=== PATIENT | female | born 1995 | race Caucasian/White ===

== ENCOUNTER 2018-06-11 20:04 | Observation (INO) | payer OTHER ==
--- NOTE | 2018-06-11 20:21 | ED PDOC ---
"Arrival/HPI - General Time Seen by Provider: 06/11/18 20:17 Historian: Patient - History of Present Illness Narrative History of Present Illness (Text): 06/11/18 20:21 22 y/o female, no significant pmh, nkda, c/o acute on set of the RLQ abdominal pain started this evening. Aching and cramping pain, on and off, admits vaginal bleeding from the period which coincidentally started today, admits nausea but no vomiting, stated that she only takes tylenol for pain and it's not reliving the pain, no night sweat, no rash, no numbness or tingling, no palpitation, no other medical or psychological complaints. Past Medical History - Provider Review Nursing Documentation Reviewed: Yes Family/Social History - Physician Review Nursing Documentation Reviewed: Yes Family/Social History: Unknown Family HX Allergies/Home Meds Allergies/Adverse Reactions: Allergies No Known Allergies Allergy (Verified 06/11/18 20:22) Review of Systems - Review of Systems Constitutional: absent: Fatigue, Fevers Eyes: absent: Vision Changes ENT: absent: Hearing Changes Respiratory: absent: SOB, Cough Cardiovascular: absent: Chest Pain Gastrointestinal: Abdominal Pain, Nausea. absent: Vomiting Genitourinary Female: Vaginal Bleeding. absent: Dysuria, Frequency, Hematuria, Urine Output Changes, Vaginal Discharge Musculoskeletal: absent: Arthralgias, Back Pain Skin: absent: Rash, Pruritis Neurological: absent: Headache, Dizziness Psychiatric: absent: Anxiety, Depression, Suicidal Ideation Physical Exam Vital Signs Reviewed: Yes Vital Signs Temp Pulse Resp BP Pulse Ox 06/12/18 01:38 80 18 110/65 100 06/11/18 20:40 98.5 F 75 18 104/51 L 100 Temperature: Afebrile Pulse: Regular Respiratory Rate: Normal Appearance: Positive for: Well-Appearing, Non-Toxic Pain Distress: Moderate Mental Status: Positive for: Alert and Oriented X 3 - Systems Exam Head: Present: Atraumatic, Normocephalic Pupils: Present: PERRL Extroacular Muscles: Present: EOMI Conjunctiva: Present: Normal Mouth: Present: Moist Mucous Membranes Neck: Present: Normal Range of Motion, Trachea Midline. No: Meningeal Signs, MIDLINE TENDERNESS, Paraspinal Tenderness, Lymphadenopathy Respiratory/Chest: Present: Clear to Auscultation, Good Air Exchange. No: Respiratory Distress, Accessory Muscle Use Cardiovascular: Present: Regular Rate and Rhythm, Normal S1, S2. No: Murmurs Abdomen: Present: Tenderness (RLQ region). No: Distention, Peritoneal Signs, Rebound, Guarding Back: Present: Normal Inspection. No: CVA Tenderness, Midline Tenderness, Paraspinal Tenderness Upper Extremity: Present: Normal Inspection. No: Cyanosis, Edema Lower Extremity: Present: Normal Inspection. No: Edema Neurological: Present: GCS=15, CN II-XII Intact, Speech Normal Skin: Present: Warm, Dry, Normal Color. No: Rashes Psychiatric: Present: Alert, Oriented x 3, Normal Insight, Normal Concentration Medical Decision Making ED Course and Treatment: 06/11/18 20:23 -Urine hcg -Transvaginal sonogram -Toradol -Observe and reassess 06/11/18 23:50 -Urine hcg is negative -CT abdomen and pelvis show: Trace free pelvic fluid. appendicolith noted. -Transvaginal sonogram show Small free pelvic fluid, physiologic change or sequela of ovarian cyst leakage or rupture in the appropriate clinical setting. Physiologic follicles. No adnexal lesions or masses. No intrauterine . Normal blood flow to the ovaries. -Labs show no acute findings except wbc 15.1 (afebrile, likely pain and stress induced) -UA show no UTI -Paging surgical team for consult and evaluation. -All labs/radiology result discussed with the patient and family, agreed to be admitted for observation as the clinical picture of appendicitis is possible but slim which I can not 100% excluded the early appendicitis at this time as she would need repeat CBC to trend WBC and serial abdominal exam which would require observation over night at least. As per request to admit to Dr. Abdul as Dr. Echols doesn't come to this hospital. 06/12/18 01:24 -Pt. evaluated by the surgical services asst, Dr. Dominguez , came to evaluate the patient request to admit to the medicine and place DR. Rivera as consult, she will discussed the case with Dr. Rivera -I spoke to Dr. Abdul, discussed about the case/labs/radiology result, agreed to admit to her service for observation with routine consult with DR. Rivera. - Lab Interpretations Lab Results: 06/11/18 20:51 06/11/18 20:51 Lab Results 06/11/18 20:51: WBC 15.1 H, RBC 4.20, Hgb 12.1, Hct 35.8 L, MCV 85.2, MCH 28.8, MCHC 33.8, RDW 12.4, Plt Count 331, MPV 10.2, Gran % 76.7 H, Lymph % (Auto) 18.2 L, [place] % (Auto) 4.1, Eos % (Auto) 0.7 L, Baso % (Auto) 0.3, Gran # 11.58 H , Lymph # (Auto) 2.8, [place] # (Auto) 0.6, Eos # (Auto) 0.1, Baso # (Auto) 0.04 06/11/18 20:51: Sodium 143, Potassium 3.7, Chloride 105, Carbon Dioxide 24, Anion Gap 17, BUN 11, Creatinine 0.6 L, Est GFR ( Amer) > 60, Est GFR ( Non-Af Amer) > 60, Random Glucose 130 H, Calcium 9.5, Total Bilirubin 0.2, AST 33, ALT 21, Alkaline Phosphatase 73, Total Protein 8.3, Albumin 4.7, Globulin 3.6, Albumin/Globulin Ratio 1.3 06/11/18 20:51: Urine Color Yellow, Urine Appearance Clear, Urine pH 6.0, Ur Specific [place] 1.025, Urine Protein 30 H, Urine Glucose (UA) Negative, Urine Ketones Negative, Urine Blood Large H, Urine Nitrate Negative, Urine Bilirubin Negative, Urine Urobilinogen 0.2, Ur Leukocyte Esterase Negative, Urine RBC 20 - 25, Urine WBC 0 - 2, Ur Epithelial Cells 4 - 5, Urine Bacteria Many - RAD Interpretation Radiology Orders: 06/11/18 20:37 TRANSVAGINAL [US] Stat 06/11/18 20:39 ABD & PELVIS IV CONTRAST ONLY [CT] Stat Transvaginal sonogram: FINDINGS: Uterus/cervix: Uterus is 7.6 cm. Endometrial thickness is 5.3 mm. Cervix is closed a 2.6 cm. No myometrial mass. Right ovary: Right ovary measures 2.5 cm. Normal blood flow. Left ovary: Left ovary measures 2.8 cm. Normal blood flow. Free fluid: Small free fluid is present in the pelvis. IMPRESSION: Small free pelvic fluid, physiologic change or sequela of ovarian cyst leakage or rupture in the appropriate clinical setting. Physiologic follicles. No adnexal lesions or masses. No intrauterine . Normal blood flow to the ovaries. Thank you for allowing us to participate in the care of your patient. Dictated and Authenticated by: Luiz Campoverde MD 06/11/2018 10:23 PM Eastern Time ([place] & [place]) CT abdomen and pelvis: Lung bases: Unremarkable. No mass. No consolidation. ABDOMEN: Liver: Unremarkable. No mass. Gallbladder and bile ducts: Unremarkable. No calcified stones. No ductal dilation. Pancreas: Unremarkable. No mass. No ductal dilation. Spleen: Unremarkable. No splenomegaly. Adrenals: Unremarkable. No mass. Kidneys and ureters: Unremarkable. No solid mass. No hydronephrosis. Stomach and bowel: Unremarkable. No obstruction. No mucosal thickening. ZEFERINO CARDENASJANET | Preliminary Radiology Report WEATHER STRIP MECHANIC (QA) DISCREPANCY? If there is a discrepancy between the preliminary and final interpretation, please notify [facility] via [email or web address]. If you do not have access to our QA portal, call our QA team at [phone] CONFIDENTIALITY STATEMENT This report is intended only for the use of the referring physician, and only in accordance with law, If you received this in error, call [phone] Page 2 of 2 PELVIS: Appendix: What appear to be appendicoliths are present in a nondistended appendix Bladder: Unremarkable. No mass. Reproductive: Unremarkable as visualized. ABDOMEN and PELVIS: Intraperitoneal space: Trace free fluid is present which is nonspecific but may reflect physiologic fluid or rupture of an ovarian cyst or follicle. No free air. Bones/joints: No acute fracture. No dislocation. Soft tissues: Unremarkable. Vasculature: Unremarkable. No abdominal aortic aneurysm. Lymph nodes: [place] nonspecific retroperitoneal lymphadenopathy is noted. IMPRESSION: Trace free pelvic fluid. Thank you for allowing us to participate in the care of your patient. Dictated and Authenticated by: Benji Burton MD 06/11/2018 11:45 PM Eastern Time ([place] & [place]) Center Medical Director: Radiologist - Medication Orders Current Medication Orders: Acetaminophen (Tylenol 325mg Tab) 650 mg PO Q6H PRN PRN Reason: Pain, Mild (1-3) Ondansetron HCl (Zofran Inj) 4 mg IVP Q4H PRN PRN Reason: Nausea/Vomiting Discontinued Medications Sodium Chloride (Sodium Chloride 0.9%) 1,000 mls @ 999 mls/hr IV .Q1H1M STA Stop: 06/11/18 21:37 Last Admin: 06/11/18 20:50 Dose: 999 mls/hr eMAR Start Stop Document 06/11/18 20:50 AD (Rec: 06/11/18 20:52 AD [email or web address]) Intravenous Solution Start Date 06/11/18 Start Time 20:52 Sodium Chloride (Sodium Chloride 0.9%) 1,000 mls @ 250 mls/hr IV .Q4H JAYA Last Admin: 06/11/18 22:55 Dose: 250 mls/hr eMAR Start Stop Document 06/11/18 22:55 AD (Rec: 06/11/18 22:55 AD [id number]) Intravenous Solution Start Date 06/11/18 Start Time 22:55 Sodium Chloride (Sodium Chloride 0.9%) 1,000 mls @ 100 mls/hr IV .Q10H JAYA Last Admin: 06/12/18 02:23 Dose: 100 mls/hr eMAR Start Stop Document 06/12/18 02:23 AD (Rec: 06/12/18 02:24 AD [id number]) Intravenous Solution Start Date 06/12/18 Start Time 02:23 Ciprofloxacin (Cipro 400mg/200ml Dsw) 400 mg in 200 mls @ 133.3 mls/hr IVPB Q12 JAYA PRN Reason: Protocol Stop: 06/12/18 03:31 Last Admin: 06/12/18 04:02 Dose: 133.3 mls/hr eMAR Start Stop Document 06/12/18 04:02 BR (Rec: 06/12/18 04:03 BR [id number]) Intravenous Solution Start Date 06/12/18 Start Time 04:03 End Date 06/12/18 End time 05:33 Total Infusion Time 90 Metronidazole (Flagyl) 500 mg in 100 mls @ 100 mls/hr IVPB Q8H JAYA PRN Reason: Protocol Last Admin: 06/12/18 09:57 Dose: 100 mls/hr eMAR Start Stop Document 06/12/18 09:57 [facility] (Rec: 06/12/18 09:58 [id number] Intravenous Solution Start Date 06/12/18 Start Time 09:58 End Date 06/12/18 End time 10:55 Total Infusion Time 57 Ketorolac Tromethamine (Toradol) 30 mg IVP STAT STA Stop: 06/11/18 20:38 Last Admin: 06/11/18 20:52 Dose: 30 mg MAR Pain Assessment Document 06/11/18 20:52 AD (Rec: 06/11/18 20:[address] [facility]) Pain Reassessment Is this a pain reassessment? No Presence of Pain Presence of Pain Yes Description Intensity of Pain at present 10 IVP Administration Document 06/11/18 20:52 AD (Rec: 06/11/18 20:[address] [facility]) Charges for Administration # of IVP Administrations 1 Ketorolac Tromethamine (Toradol) 30 mg IVP STAT STA Stop: 06/12/18 03:58 Last Admin: 06/12/18 04:04 Dose: 30 mg MAR Pain Assessment Document 06/12/18 04:04 BR (Rec: 06/12/18 04:04 [id number] Pain Reassessment Is this a pain reassessment? No Sleep Is patient sleeping during reassessment? No Presence of Pain Presence of Pain Yes IVP Administration Document 06/12/18 04:04 BR (Rec: 06/12/18 04:04 BR [id number]) Charges for Administration # of IVP Administrations 1 Pneumococcal Polyvalent Vaccine (Pneumovax 23 Vaccine) 0.5 ml IM .ONCE ONE Stop: 06/12/18 04:50 - PA / BRAIDER SETTER / Resident Statement MD/DO has reviewed & agrees with the documentation as recorded. Disposition/Present on Arrival - Present on Arrival Any Indicators Present on Arrival: No History of DVT/PE: No History of Uncontrolled Diabetes: No Urinary Catheter: No History of Decub. Ulcer: No - Disposition Have Diagnosis and Disposition been Completed?: Yes Diagnosis: Dysmenorrhea, Ovarian cyst rupture, Appendicolith, Leukocytosis Disposition: HOSPITALIZED Disposition Time: 23:46 Patient Plan: Admission, Observation Patient Problems: Current Active Problems Problem Status Onset Appendicolith Acute Dysmenorrhea Acute Leukocytosis Acute Ovarian cyst rupture Acute Condition: STABLE"
[2018-06-11 20:28] VITALS: BMI 23.9
[2018-06-11] MEDS ORDERED: Sodium Chloride 0.9% 1,000 ML IV STA (20:37)
[2018-06-11 21:03] LABS: URINE BILIRUBIN NEGATIVE (NEGATIVE); URINE BLOOD LARGE (NEGATIVE); URINE GLUCOSE (UA) NEGATIVE (NEGATIVE); URINE LEUKOCYTE ESTERASE NEGATIVE Leu/uL (NEGATIVE); URINE PROTEIN 30 mg/dL (<30 mg/dL); URINE UROBILINOGEN 0.2 E.U./dL (<1 E.U./dL)
[2018-06-11 21:04] LABS: BASO # 0.04 K/mm3 (0.0-2.0); BASO % 0.3 % (0.0-3.0); EOS # 0.1 (0.0-0.7); EOS % 0.7 % (1.5-5.0); GRAN # 11.58 (1.4-6.5); GRAN % 76.7 % (50.0-68.0); HEMOGLOBIN 12.1 g/dL (12.0-16.0); LYMPH # 2.8 (1.2-3.4); LYMPH % 18.2 % (22.0-35.0); MEAN CELL VOLUME 85.2 fl (80.0-105.0); MEAN CORPUSCULAR HEMOGLOBIN 28.8 pg (25.0-35.0); MEAN CORPUSCULAR HGB CONC 33.8 g/dl (31.0-37.0); MEAN PLATELET VOLUME 10.2 fl (7.0-11.0); MONO # 0.6 (0.1-0.6); MONO % 4.1 % (1.0-6.0); RBC 4.2 10^6/uL (3.5-6.1); RED CELL DISTRIBUTION WIDTH 12.4 % (11.5-14.5); WHITE BLOOD COUNT 15.1 10^3/ul (4.5-11.0)
[2018-06-11 21:12] LABS: ALB/GLOB RATIO 1.3 (1.1-1.8); ALBUMIN 4.7 g/dL (3.0-4.8); ALT/SGPT 21 U/L (7-56); AST/SGOT 33 U/L (14-36); BLOOD UREA NITROGEN 11 mg/dL (7-21); CALCIUM 9.5 mg/dL (8.4-10.5); GFR NON-AFRICAN AMERICAN > 60
[2018-06-11 21:19] LABS: URINE APPEARANCE CLEAR (CLEAR); URINE COLOR YELLOW (YELLOW)
[2018-06-11] MEDS ORDERED: Sodium Chloride 0.9% 1,000 ML IV SCH (21:30)
[2018-06-11 21:31] LABS: URINE BACTERIA MANY (NEG); URINE RBC 20 - 25 /hpf (0-2); URINE WBC 0 - 2 /hpf (0-6)
[2018-06-11] MEDS ORDERED: Iohexol 350 MG/100 ML VIAL ONE (22:55)
--- NOTE | 2018-06-12 01:40 | CP.PCM.CON ---
History of Present Illness - History of Present Illness History of Present Illness: General Surgery Consult Note for Dr. Sanches 22F, no significant PMH, presented to the ED for pelvic pain after starting her menstrual cycle. Patient had a CT of the abdomen and pelvis done showing appendicoliths for which surgery was consulted. Patient seen and evaluated in the ED. She states the pain started in the evening (06/11) and coincided with the start of her menstrual cycle. She admits to pain with menses is a regular occurrence for her and chose not to be on OCPs. This pain was more severe than before described as a non-radiating, pressure around her pelvis rated at a 10/ 10 initially. She admits to nausea and chills at the time. Denies fever or vomiting. In the ED, she received a dose of Toradol that resolved her pain and she is currently asymptomatic. Patient does not see a diabetes solutions specialist. She is currently sexually active with one partner and they use protection. She has no history of STDs. PMH: none PSH: none FH: Mother had heavy, painful menstrual cycles ALL: NKDA SH: Admits to vaping. Denies alcohol or illicit drug use. Review of Systems - Constitutional Constitutional: absent: Chills, Fever, Headache, Weakness - EENT Eyes: absent: Blurred Vision, Change in Vision Ears: absent: Ear Pain, Tinnitus Nose/Mouth/Throat: absent: Nasal Congestion, Nasal Discharge - Cardiovascular Cardiovascular: absent: Chest Pain, Dyspnea - Respiratory Respiratory: absent: Cough, Dyspnea - Gastrointestinal Gastrointestinal: absent: Abdominal Pain, Bloating, Diarrhea, Nausea, Vomiting - Genitourinary Genitourinary: absent: Difficulty Urinating, Dysuria - Reproductive: Female Reproductive:Female: Currently Menstual, Dysmenorrhea, Pelvic Pain - Menstruation Menstruation: Currently Menstual, Dysmenorrhea - Musculoskeletal Musculoskeletal: absent: Back Pain, Neck Pain - Integumentary Integumentary: absent: Bleeding Lesions, Changing Lesions - Neurological Neurological: absent: Confusion, Dizziness, Numbness, Headaches - Psychiatric Psychiatric: absent: Anxiety, Depression Past Patient History - Infectious Disease Hx of Infectious Diseases: None - Past Social History Smoking Status: Never Smoked - PSYCHIATRIC Hx Substance Use: No - SURGICAL HISTORY Hx Surgeries: No Meds Allergies/Adverse Reactions: Allergies Allergy/AdvReac Type Severity Reaction Status Date / Time No Known Allergies Allergy Verified 06/11/18 20:22 - Medications Medications: Current Medications Sodium Chloride (Sodium Chloride 0.9%) 1,000 mls @ 250 mls/hr IV .Q4H JAYA Last Admin: 06/11/18 22:55 Dose: 250 mls/hr Physical Exam - Constitutional Appears: Well, Non-toxic, No Acute Distress - Head Exam Head Exam: ATRAUMATIC, NORMAL INSPECTION, NORMOCEPHALIC - Eye Exam Eye Exam: EOMI Pupil Exam: PERRL - ENT Exam ENT Exam: Mucous Membranes Dry - Respiratory Exam Respiratory Exam: Clear to Auscultation Bilateral, NORMAL BREATHING PATTERN. absent: Wheezes, Respiratory Distress - Cardiovascular Exam Cardiovascular Exam: REGULAR RHYTHM, +S1, +S2. absent: Systolic Murmur - GI/Abdominal Exam GI & Abdominal Exam: Normal Bowel Sounds, Soft. absent: Distended, Guarding, Rebound, Tenderness - Rectal Exam Additional comments: Patient refused - Exam Additional comments: Patient refused - Extremities Exam Extremities exam: Positive for: pedal pulses present. Negative for: pedal edema , tenderness - Neurological Exam Neurological exam: Alert, Oriented x3 - Psychiatric Exam Psychiatric exam: Normal Affect, Normal Mood - Skin Skin Exam: Dry, Intact, Normal Color, Warm Results - Vital Signs Recent Vital Signs: Last Vital Signs Temp 98.5 F 06/11/18 20:40 Pulse 75 06/11/18 20:40 Resp 18 06/11/18 20:40 BP 104/51 L 06/11/18 20:40 Pulse Ox 100 06/11/18 20:40 - Labs Result Diagrams: 06/12/18 06:15 06/12/18 06:30 Labs: Laboratory Results - last 24 hr 06/11/18 06/11/18 06/11/18 20:51 20:51 20:51 WBC 15.1 H RBC 4.20 Hgb 12.1 Hct 35.8 L MCV 85.2 MCH 28.8 MCHC 33.8 RDW 12.4 Plt Count 331 MPV 10.2 Gran % 76.7 H Lymph % (Auto) 18.2 L [place] % (Auto) 4.1 Eos % (Auto) 0.7 L Baso % (Auto) 0.3 Gran # 11.58 H Lymph # (Auto) 2.8 [place] # (Auto) 0.6 Eos # (Auto) 0.1 Baso # (Auto) 0.04 Sodium 143 Potassium 3.7 Chloride 105 Carbon Dioxide 24 Anion Gap 17 BUN 11 Creatinine 0.6 L Est GFR ( Amer) > 60 Est GFR (Non-Af Amer) > 60 Random Glucose 130 H Calcium 9.5 Total Bilirubin 0.2 AST 33 ALT 21 Alkaline Phosphatase 73 Total Protein 8.3 Albumin 4.7 Globulin 3.6 Albumin/Globulin Ratio 1.3 Urine Color Yellow Urine Appearance Clear Urine pH 6.0 Ur Specific [place] 1.025 Urine Protein 30 H Urine Glucose (UA) Negative Urine Ketones Negative Urine Blood Large H Urine Nitrate Negative Urine Bilirubin Negative Urine Urobilinogen 0.2 Ur Leukocyte Esterase Negative Urine RBC 20 - 25 Urine WBC 0 - 2 Ur Epithelial Cells 4 - 5 Urine Bacteria Many Assessment & Plan - Assessment and Plan (Free Text) Assessment: 22F, no significant PMH, presents with pelvic pain, chills and nausea. CTAP showed free fluid likely secondary to a ruptured cyst and appendicoliths. Plan: - Patient currently asymptomatic - Afebrile - Leukocytosis of 15 on admission, now 11.2 - Pain likely secondary to presumed ruptured ovarian cyst - Start diet and advance as tolerated - No plan for surgical intervention at this present time - Clear for DC from surgical standpoint - Discussed with Dr. Myron Dominguez PGY1
[2018-06-12] MEDS ORDERED: Sodium Chloride 0.9% 1,000 ML IV SCH (01:47)
[2018-06-12] MEDS ORDERED: Ciprofloxacin 400mg/200ml D5W 400 MG/200 ML BAG IVPB SCH (02:00)
[2018-06-12] MEDS: metroNIDAZOLE IV 500 mg/100 ml 500 MG/100 ML BAG IVPB SCH ×2 (02:23→09:57)
[2018-06-12 04:49] VITALS: RESP 20
[2018-06-12] MEDS ORDERED: Pneumococcal 23-Valent Vaccine IM ONE (04:49)
[2018-06-12 07:02] LABS: HEMOGLOBIN 10.5 g/dL (12.0-16.0); MEAN CELL VOLUME 85.6 fl (80.0-105.0); MEAN CORPUSCULAR HEMOGLOBIN 28.5 pg (25.0-35.0); MEAN CORPUSCULAR HGB CONC 33.2 g/dl (31.0-37.0); MEAN PLATELET VOLUME 10.4 fl (7.0-11.0); RBC 3.69 10^6/uL (3.5-6.1); RED CELL DISTRIBUTION WIDTH 12.6 % (11.5-14.5); WHITE BLOOD COUNT 11.2 10^3/ul (4.5-11.0)
--- NOTE | 2018-06-12 07:26 | US ---
Date of service: 06/11/2018 HISTORY: Rt. pelvic pain COMPARISON: None available. TECHNIQUE: Transvaginal pelvic ultrasound FINDINGS: UTERUS: Measures 7.6 x 4.8 x 4.9 cm. Anteverted. ENDOMETRIUM: Measures 5 mm in diameter. CERVIX: No cervical abnormality identified. RIGHT OVARY: Measures 2.5 x 1.3 x 2.2 cm. Blood flow is demonstrated. LEFT OVARY: Measures 2.8 x 2.2 x 3.1 cm. Blood flow is demonstrated. FREE FLUID: Small pelvic fluid. OTHER FINDINGS: None. IMPRESSION: Unremarkable pelvic ultrasound. Preliminary impression was provided by [facility].
[2018-06-12 07:48] LABS: ALB/GLOB RATIO 1.1 (1.1-1.8); ALBUMIN 3.6 g/dL (3.0-4.8); ALT/SGPT 20 U/L (7-56); AST/SGOT 25 U/L (14-36); BLOOD UREA NITROGEN 7 mg/dL (7-21); CALCIUM 8.4 mg/dL (8.4-10.5); GFR NON-AFRICAN AMERICAN > 60
--- NOTE | 2018-06-12 08:30 | CT ---
Date of service: 06/11/2018 PROCEDURE: CT Abdomen and Pelvis with contrast HISTORY: RLQ pain COMPARISON: Transvaginal pelvic ultrasound performed 06/11/18 TECHNIQUE: Contrast dose: 100 mL Omnipaque 350 IV Radiation dose: Total exam DLP = 238.46 mGy-cm. This CT exam was performed using one or more of the following dose reduction techniques: Automated exposure control, adjustment of the mA and/or kV according to patient size, and/or use of iterative reconstruction technique. FINDINGS: LOWER THORAX: No visible consolidation, pleural effusion, or pneumothorax. LIVER: Unremarkable. GALLBLADDER AND BILE DUCTS: Unremarkable. PANCREAS: Unremarkable. SPLEEN: Unremarkable. ADRENALS: Unremarkable. KIDNEYS AND URETERS: The kidneys enhance symmetrically. No hydronephrosis or obstructing calculus identified. VASCULATURE: No aortic aneurysm. BOWEL: Stomach is nondistended. Lack of oral contrast limits evaluation for bowel pathology. Bowel loops appear within normal limits of caliber without evidence of obstruction. APPENDIX: The appendix appears within normal limits of caliber. No secondary signs of acute appendicitis. PERITONEUM: No definite air. LYMPH NODES: Nonspecific scattered sub cm retroperitoneal lymph nodes. No bulky adenopathy identified. BLADDER: Unremarkable. REPRODUCTIVE: The uterus is present. Small pelvic free fluid. BONES: No acute osseous is detected. OTHER FINDINGS: None. IMPRESSION: Small pelvic free fluid. Preliminary impression was provided by virtual radi[facility].
[2018-06-12 14:50] VITALS: BP 103/62; PULSE 89; TEMP 98.4; O2SAT 97
== END 2018-06-12 17:59 | disposition home or self-care (01) ==
LOC: ED 20:04 → ERH 06-12 01:24 → 5RNO 06-12 03:38
PROVIDERS: ADMIT Internal Medicine; ATTEND Internal Medicine
DX: K38.1 Appendicular concretions (principal); N83.209 Unspecified ovarian cyst, unspecified side; N94.6 Dysmenorrhea, unspecified; R10.31 Right lower quadrant pain; D72.829 Elevated white blood cell count, unspecified
CPT/HCPCS: 36415; 74177; 76830; 80053; 81001; 83735; 84100; 85025; 85027; 96374; 99285; G0378; J0744; J1885; J7030; Q9967